=== PATIENT | male | born 1985 | race Caucasian/White ===

== ENCOUNTER 2016-08-17 11:15 | Emergency (ER) | payer OTHER ==
[2016-08-17] MEDS ORDERED: NORCO 5/325 MG PO ONE (11:30)
[2016-08-17] MEDS ORDERED: TORAdol 30 mg Injection IM ONE (11:55)
[2016-08-17] MEDS ORDERED: TORAdol 30 mg Injection ONE (11:59)
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
[2016-08-17 13:15] VITALS: BP 114/59; PULSE 59; O2SAT 99
== END 2016-08-17 13:10 | disposition home or self-care (01) ==
LOC: ED 11:15
DX: S39.012A Strain of muscle, fascia and tendon of lower back, initial encounter (principal); S29.019A Strain of muscle and tendon of unspecified wall of thorax, initial encounter; Y93.F9 Activity, other caregiving; Y92.89 Other specified places as the place of occurrence of the external cause; Y99.0 Civilian activity done for income or pay; V64.6XXA Passenger in heavy transport vehicle injured in collision with heavy transport vehicle or bus in traffic accident, initial encounter
CPT/HCPCS: 71250; 74176; 80307; 99284; J1885